=== PATIENT | female | born 1995 | race Caucasian/White ===

== ENCOUNTER 2021-09-06 20:07 | Emergency (ER) | payer MEDICAID, SELFPAY ==
--- NOTE | 2021-09-06 20:15 | ECG_ITS ---
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 Measurements Intervals [place] Rate: 101 P: 39 PA: 128 QRS: 47 QRSD: 92 T: 17 QT: 341 QTc: 443 Interpretive Statements SINUS TACHYCARDIA INCOMPLETE RIGHT BUNDLE BRANCH BLOCK [90+ ms QRS DURATION, TERMINAL R IN V1/V2, 40+ ms S IN I/aVL/V4/V5/V6] ABNORMAL RHYTHM ECG No previous ECG available for comparison Electronically Signed On 09-06-2021 22:48:59 AUTO SERVICE INSTRUCTOR by Samia Tariq M.D. [id number] true
[2021-09-06 20:22] VITALS: PULSE 118; RESP 20; O2SAT 97
[2021-09-06 20:23] VITALS: BMI 32.9
[2021-09-06 20:39] VITALS: BP 130/93; PULSE 94; RESP 18; TEMP 37.1; O2SAT 99
--- NOTE | 2021-09-06 21:57 | W.ED.ARRPALP ---
Documented by User: BOUCHRA Parker 09/07/21 01:05 HPI - Arrhythmia/Palpitations General: Chief Complaint: Arrhythmia/Palpitations Stated Complaint: fast heart beat, Dizzy Time Seen by Provider: 09/06/21 21:54 History of Present Illness: HPI narrative: Patient presents with dizziness and increased heart rate since starting Metformin and lisinopril with hydrochlorothiazide 2 days ago. Patient said she is lost about 6 pounds and been peeing a lot. Said she also had some diarrhea since starting Metformin. Patient denies any other illness presently. Patient states she has been diabetic since age 11 or 12 and has been on off medications during that time. Also has history of generalized anxiety diagnosed at that time. Patient does not follow strict diabetic diet and just saw Dr. Lo at [facility] this past week and got put on medication has a follow-up appointment in a week. She states her blood sugars been in the mid 200s here last week. MD complaint: rapid heart beat Onset (ago): hour(s) Duration: constant Severity: moderate Context: other (Since starting new medication) Associated symptoms: Reports no associated symptoms; Deny anxiety, nausea or vomiting Review of Systems Const: Denies: fever(s), chills or body aches Eyes: Denies: change in vision or blurry vision ENMT: Denies: throat pain or nasal congestion Card: Denies: chest pain or dyspnea on exertion Resp: Denies: dyspnea, productive cough or non-productive cough GI: Reports: diarrhea; Denies: abdominal pain, nausea or vomiting : Reports: urinary frequency Musc: Denies: extremity pain Skin/Breast: Denies: rash Neuro: Reports: dizziness (With standing and moving about); Denies: headache(s) Psych: Denies: anxiety or depression Joaquim/Lymph: Denies: easy bruising [facility] ED Female Reproductive History: Date of last menstrual period: 08/13/21 Physical Exam Const: COMMON NORMALS: no acute distress, average body habitus and patient oriented x3 HENMT: COMMON NORMALS: normocephalic HEAD & SCALP: normal to inspection and normocephalic FACE & SINUS: normal facial exam Eye: COMMON NORMALS: conjunctivae normal GENERAL EYE: appearance normal, both eyes and all related structures CONJUNCTIVA: Yes conjunctivae normal Neck/C-Spine: COMMON NORMALS: no JVD Chest: COMMONS NORMALS: normal inspection of the chest Resp: COMMON NORMALS: normal respiratory effort and clear to auscultation bilaterally AUSCULTATION: clear to auscultation bilaterally Cardio: COMMON NORMALS: no JVD, regular rate and regular rhythm RATE: regular rate RHYTHM: regular rhythm GI: COMMON NORMALS: Normal to inspection, nondistended, normoactive bowel sounds present Extremity: COMMON NORMALS: normal to inspection and full ROM Neuro: COMMON NORMALS: patient oriented x3 Course Vital Signs: Vital signs: Vital Signs Temperature 98.7 F 09/06/21 20:39 Pulse Rate 105 H 09/06/21 23:06 Respiratory Rate 18 09/06/21 23:06 Blood Pressure 160/98 09/06/21 23:06 Pulse Oximetry 98 09/06/21 23:06 MDM - Arrhythmia/Palpitations MDM Narrative: Medical decision making narrative: Patient presents with signs of dehydration and adverse medication effects. Patient is diabetic since age 11 or 12 she states and has been on and off medication alternate time. Also has history of generalized anxiety disorder. Patient states that since started on Metformin and lisinopril hydrochlorothiazide here 2 days ago she has been peeing a lot lost 6 pounds and is been dizzy with standing. Laboratory studies were done EKG which support dehydration and poor blood sugar control. Patient given a liter of fluid improved remarkably. Patient encouraged follow-up primary care provider to discuss medications and also was strongly encouraged to monitor blood sugars on a regular basis follow diabetic diet and get her diabetes under control. Lab Data: Labs: Lab Results 09/06/21 09/06/21 09/06/21 22:00 22:00 22:17 WBC 17.0 10^3/uL H 10 ^3/uL (4.0-10.0) RBC 5.89 10^6/uL H 10 ^6/uL (4.1-5.3) Hgb 15.1 g/dL g/dL (11.5-15.3) Hct 47.9 % H % (37.0-47.0) MCV 81.3 fl fl (81-99) MCH 25.6 pg L pg (28.0-34.0) MCHC 31.5 g/dL g/dL (30.0-36.0) RDW 13.8 % % (12.1-15.1) Plt Count 434 10^3/cmm H 10 ^3/cmm (130-400) MPV 11.3 fL H fL (7.4-10.4) Neut % (Auto) 69.1 % % Lymph % (Auto) 24.8 % % [place] % (Auto) 4.9 % % Eos % (Auto) 0.1 % % Baso % (Auto) 0.5 % % Neut # (Auto) 11.74 10^3/uL H 1 0^3/uL (1.8-7.7) Lymph # (Auto) 4.2 10^3/uL 10^3/ uL (0.8-4.8) [place] # (Auto) 0.8 10^3/uL 10^3/ uL (0.2-0.9) Eos # (Auto) 0.0 10^3/uL 10^3/ uL (0.0-0.8) Baso # (Auto) 0.1 10^3/uL 10^3/ uL (0.0-0.1) Nucleated RBC % (a uto) 0 % % Nucleated RBCs # 0.0 /100WBC /100W BC Sodium 130 mmol/L L mmol /L (136-145) Potassium 3.8 mmol/L mmol/L (3.5-5.1) Chloride 93 mmol/L L mmol/ L (98-107) Carbon Dioxide 21 mmol/L L mmol/ L (22-29) Anion Gap 19.8 H (5-19) BUN 9 mg/dL mg/dL (6-20) Creatinine 0.3 mg/dL L mg/dL (0.5-0.9) GFR Calculation 268.9 mL/min H mL /min (90-130) Glucose 237 mg/dL H mg/dL (65-115) Calculated Osmolal ity 276 mOsm/kg L mOs m/kg (285-295) Calcium 9.9 mg/dL mg/dL (8.5-10.5) Urine Color Yellow (Yellow) Urine Appearance Clear (CLEAR) Urine pH 5 (5-7) Ur Specific Gravit y 1.015 (1.005-1.030) Urine Protein Neg (Negative) Urine Glucose (UA) 2+ H (Normal) Urine Ketones 2+ H (Negative) Urine Blood Neg (Negative) Urine Nitrate Negative (Negative) Urine Bilirubin Neg (Negative) Urine Urobilinogen Norm mg/dL mg/dL (Negative) Ur Leukocyte Lay ase Negative (Negative) Discharge Plan Discharge Patient Disposition: Home Clinical Impression: Anxiety, generalized, Dehydration Adverse effect of drug/medicinal Qualifiers: Encounter type: initial encounter Qualified Code(s): T50.905A - Adverse effect of unspecified drugs, medicaments and biological substances, initial encounter Diabetes Qualifiers: Diabetes mellitus type: type 2 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 Make sure that you drink plenty of fluids. Follow strict diabetic diet. Check blood pressure twice a day. Discussed with Gissell Lo your new medications and possibly getting off the water pill. Check sugars twice daily. Coding Level of Care Code ED Environmental Studies Professor for Chg Fwd Exam Comprehensive Documented by User: Nimo Isaacs MD 09/07/21 01:08 HPI - Arrhythmia/Palpitations General: Chief Complaint: Arrhythmia/Palpitations Stated Complaint: fast heart beat, Dizzy Time Seen by Provider: 09/06/21 21:54 Course Vital Signs: Vital signs: Vital Signs Temperature 98.7 F 09/06/21 20:39 Pulse Rate 105 H 09/06/21 23:06 Respiratory Rate 18 09/06/21 23:06 Blood Pressure 160/98 09/06/21 23:06 Pulse Oximetry 98 09/06/21 23:06 MDM - Arrhythmia/Palpitations MDM Narrative: Medical decision making narrative: Discussed case with midlevel patient is likely having palpitations due to anxiety. Patient's blood work here is normal she does have cardiology follow-up and is to follow-up then. She is return if worsening. Lab Data: Labs: Lab Results 09/06/21 09/06/21 09/06/21 22:00 22:00 22:17 WBC 17.0 10^3/uL H 10 ^3/uL (4.0-10.0) RBC 5.89 10^6/uL H 10 ^6/uL (4.1-5.3) Hgb 15.1 g/dL g/dL (11.5-15.3) Hct 47.9 % H % (37.0-47.0) MCV 81.3 fl fl (81-99) MCH 25.6 pg L pg (28.0-34.0) MCHC 31.5 g/dL g/dL (30.0-36.0) RDW 13.8 % % (12.1-15.1) Plt Count 434 10^3/cmm H 10 ^3/cmm (130-400) MPV 11.3 fL H fL (7.4-10.4) Neut % (Auto) 69.1 % % Lymph % (Auto) 24.8 % % [place] % (Auto) 4.9 % % Eos % (Auto) 0.1 % % Baso % (Auto) 0.5 % % Neut # (Auto) 11.74 10^3/uL H 1 0^3/uL (1.8-7.7) Lymph # (Auto) 4.2 10^3/uL 10^3/ uL (0.8-4.8) [place] # (Auto) 0.8 10^3/uL 10^3/ uL (0.2-0.9) Eos # (Auto) 0.0 10^3/uL 10^3/ uL (0.0-0.8) Baso # (Auto) 0.1 10^3/uL 10^3/ uL (0.0-0.1) Nucleated RBC % (a uto) 0 % % Nucleated RBCs # 0.0 /100WBC /100W BC Sodium 130 mmol/L L mmol /L (136-145) Potassium 3.8 mmol/L mmol/L (3.5-5.1) Chloride 93 mmol/L L mmol/ L (98-107) Carbon Dioxide 21 mmol/L L mmol/ L (22-29) Anion Gap 19.8 H (5-19) BUN 9 mg/dL mg/dL (6-20) Creatinine 0.3 mg/dL L mg/dL (0.5-0.9) GFR Calculation 268.9 mL/min H mL /min (90-130) Glucose 237 mg/dL H mg/dL (65-115) Calculated Osmolal ity 276 mOsm/kg L mOs m/kg (285-295) Calcium 9.9 mg/dL mg/dL (8.5-10.5) Urine Color Yellow (Yellow) Urine Appearance Clear (CLEAR) Urine pH 5 (5-7) Ur Specific Gravit y 1.015 (1.005-1.030) Urine Protein Neg (Negative) Urine Glucose (UA) 2+ H (Normal) Urine Ketones 2+ H (Negative) Urine Blood Neg (Negative) Urine Nitrate Negative (Negative) Urine Bilirubin Neg (Negative) Urine Urobilinogen Norm mg/dL mg/dL (Negative) Ur Leukocyte Lay ase Negative (Negative) Discharge Plan Discharge Patient Disposition: Home Clinical Impression: Anxiety, generalized, Dehydration Adverse effect of drug/medicinal Qualifiers: Encounter type: initial encounter Qualified Code(s): T50.905A - Adverse effect of unspecified drugs, medicaments and biological substances, initial encounter Diabetes Qualifiers: Diabetes mellitus type: type 2 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 Make sure that you drink plenty of fluids. Follow strict diabetic diet. Check blood pressure twice a day. Discussed with Gissell Lo your new medications and possibly getting off the water pill. Check sugars twice daily. Coding Level of Care Code ED Environmental Studies Professor for Chg Fwd Exam Comprehensive
[2021-09-06 22:09] VITALS: BP 156/109; BP 158/90; BP 178/113; PULSE 104; PULSE 109; PULSE 93
[2021-09-06 22:12] LABS: Basophils # 0.1 10^3/uL (0.0-0.1); Basophils % 0.5 %; Eosinophils % 0.1 %; Hematocrit 47.9 % (37.0-47.0); Hemoglobin 15.1 g/dL (11.5-15.3); Lymphocytes # 4.2 10^3/uL (0.8-4.8); Lymphocytes % 24.8 %; Mean Corpuscular HGB Conc 31.5 g/dL (30.0-36.0); Mean Corpuscular Hemoglobin 25.6 pg (28.0-34.0); Mean Corpuscular Volume 81.3 fl (81-99); Mean Platelet Volume 11.3 fL (7.4-10.4); Monocytes # 0.8 10^3/uL (0.2-0.9); Monocytes % 4.9 %; Neutrophils # 11.74 10^3/uL (1.8-7.7); Neutrophils % 69.1 %; Nucleated Red Blood Cells % 0 %; Platelet Count 434 10^3/cmm (130-400); Red Blood Count 5.89 10^6/uL (4.1-5.3); Red Cell Distribution Width 13.8 % (12.1-15.1)
[2021-09-06] MEDS: sodium chloride 0.9% 1,000 ML 999 ML IV (22:20)
[2021-09-06 22:22] LABS: Add Urine Microscopic? NO; Charge for UA Resulting for Rev
[2021-09-06 22:26] LABS: Bilirubin Urine Neg (Negative); Blood Urine Neg (Negative); Glucose Urine UA 2+ (Normal); Ketones Urine 2+ (Negative); Leukocyte Esterase Urine Negative (Negative); Nitrate Urine Negative (Negative); Protein Urine Neg (Negative); Specific Gravity, Urine 1.015 (1.005-1.030); Urine Appearance Clear (CLEAR); Urine Color Yellow (Yellow); Urobilinogen Urine Norm (Negative); pH Urine 5 (5-7)
[2021-09-06 22:28] LABS: Blood Urea Nitrogen 9 mg/dL (6-20); Calcium 9.9 mg/dL (8.5-10.5); Carbon Dioxide 21 mmol/L (22-29); Chloride 93 mmol/L (98-107); Glomerular Filtration Rate 268.9 mL/min (90-130); Glucose 237 mg/dL (65-115); Osmolality Calculated 276 mOsm/kg (285-295); Sodium 130 mmol/L (136-145)
[2021-09-06 22:31] LABS: Anion Gap 19.8 (5-19); Potassium 3.8 mmol/L (3.5-5.1)
[2021-09-06] MEDS: LORazepam 1 mg Tablet PO (22:54)
[2021-09-06 23:06] VITALS: BP 160/98; PULSE 105; RESP 18; O2SAT 98
[2021-09-06 23:14] LABS: Slide Review Slide Review Perform
== END 2021-09-06 23:13 | disposition home or self-care (01) ==
PROVIDERS: Emergency Provider Nurse Practitioner Family; PCP Nurse Practitioner Family
DX: F41.1 Generalized anxiety disorder (principal); E86.0 Dehydration; T50.905A Adverse effect of unspecified drugs, medicaments and biological substances, initial encounter; E11.9 Type 2 diabetes mellitus without complications
CPT/HCPCS: 80048; 81003; 85025; 93005; 96360; 99284; J7030

== ENCOUNTER 2021-11-26 09:23 | Outpatient (CLI) | payer MEDICAID, SELFPAY ==
[2021-11-26 10:35] LABS: Free T4 Free Thyroxine 1.28 ng/dL (0.82-1.77); Thyroid Stimulating Hormone 1.31 uIU/mL (0.27-4.20)
[2021-11-27 07:36] LABS: T3 Total 121 ng/dL (76-181)
[2021-12-01 00:37] LABS: TSH Receptor Binding Antibody 1.16 IU/L (< OR = 2.00)
== END 2021-11-26 09:24 | disposition home or self-care (01) ==
LOC: LAB 09:28
PROVIDERS: PCP Nurse Practitioner Family; Visit Provider Internal Medicine
DX: R00.0 Tachycardia, unspecified (principal)
CPT/HCPCS: 36415; 83516; 84439; 84443; 84480

== ENCOUNTER → 2022-02-22 08:42 | Outpatient (BNVA) | payer MEDICAID, SELFPAY | PROVIDERS: Visit Provider Internal Medicine | DX: E11.65 Type 2 diabetes mellitus with hyperglycemia (principal); E16.0 Drug-induced hypoglycemia without coma; E78.2 Mixed hyperlipidemia; R00.0 Tachycardia, unspecified; I10 Essential (primary) hypertension | CPT/HCPCS: 99214 ==

== ENCOUNTER → 2022-05-23 09:12 | Outpatient (BNVA) | payer MEDICAID, SELFPAY | PROVIDERS: Visit Provider Internal Medicine | DX: E11.65 Type 2 diabetes mellitus with hyperglycemia (principal); E16.0 Drug-induced hypoglycemia without coma; E78.2 Mixed hyperlipidemia; R00.0 Tachycardia, unspecified | CPT/HCPCS: 80061; 83036 ==

== ENCOUNTER → 2022-05-24 10:58 | Outpatient (BNVA) | payer MEDICAID, SELFPAY | PROVIDERS: Visit Provider Internal Medicine | DX: E11.65 Type 2 diabetes mellitus with hyperglycemia (principal); E16.0 Drug-induced hypoglycemia without coma; E78.2 Mixed hyperlipidemia; R00.0 Tachycardia, unspecified; I10 Essential (primary) hypertension | CPT/HCPCS: 82384; 82530; 82570 ==

== ENCOUNTER → 2022-06-02 10:01 | Outpatient (BNVA) | payer MEDICAID, SELFPAY | PROVIDERS: Visit Provider Emergency Medicine | DX: J02.9 Acute pharyngitis, unspecified (principal) | CPT/HCPCS: 87071; 87880 ==

== ENCOUNTER → 2022-06-03 14:54 | Outpatient (BNVA) | payer MEDICAID, SELFPAY | PROVIDERS: PCP Nurse Practitioner Family; Visit Provider Internal Medicine | DX: E11.65 Type 2 diabetes mellitus with hyperglycemia (principal); E11.40 Type 2 diabetes mellitus with diabetic neuropathy, unspecified; E11.649 Type 2 diabetes mellitus with hypoglycemia without coma; R00.0 Tachycardia, unspecified; E78.2 Mixed hyperlipidemia; I10 Essential (primary) hypertension; E16.0 Drug-induced hypoglycemia without coma; E03.8 Other specified hypothyroidism; Z79.4 Long term (current) use of insulin | CPT/HCPCS: 99214 ==

== ENCOUNTER 2022-10-31 14:19 | Emergency (ER) | payer MEDICAID, SELFPAY ==
[2022-10-31] VITALS (50 sets, daily range): BP systolic 122–144; BP diastolic 57–97; PULSE 120–128; RESP 16; TEMP 38.6; O2SAT 96–100
[2022-10-31] MEDS: ibuprofen 800 mg tablet PO (15:33)
--- NOTE | 2022-10-31 16:06 | ED_ITS ---
Documented by User: Daniela Taylor IT INFRASTRUCTURE CONSULTANT-C 11/01/22 13:40 HPI - Fever General: Chief Complaint: Fever Stated Complaint: headache/weak Time Seen by Provider: 10/31/22 15:52 History of Present Illness: Patient reports that she is here today for dehydration. She reports that she has been sick for 5 days with lots of vomiting. She reports that she was recently diagnosed with influenza A. She reports that she also has swelling and pain of her left labia extending to her rectum. She reports that today she has noticed that she has had a higher heart rate and she is just not feeling well she is becoming very weak. She is drinking and using Zofran and not vomiting as much but she feels like she is not improving at all. She does report that she is diabetic. PFSH ED PFSH: Medical History Asthma Diabetes type 2, uncontrolled Surgical History No pertinent past surgical history Family History Father Ineffective renal tissue perfusion Cardiovascular abnormality due to infective myocarditis Mother Diabetes Hypertension High serum cholesterol sulfate Family/Other Myocardial infarction Social History Smoking and tobacco status: never smoked Second hand smoke exposure: No Smoking risk assessment/counseling performed?: Yes Alcohol intake: never Desire information about alcohol rehabilitation?: No Counseling given: No Desire information about substance/drug rehabilitation?: No Counseling given: No Adopted: No Caregiver/support person: No Lives independently: Yes Household members: significant other Housing: House Marital status: Single Highest education level completed: High School Graduate service: No Current occupational status: unemployed History of recent travel: No Female Reproductive History: Date of last menstrual period: 08/13/21 Physical Exam Const: COMMON NORMALS: no acute distress, patient oriented x3 and alert HENMT: COMMON NORMALS: normocephalic, hearing grossly normal bilaterally, EAC's normal, TM's normal bilaterally, Normal nasal mucous membranes and turbinates present, moist oral mucous membranes and oropharynx normal HEAD & SCALP: normocephalic NOSE: Normal nasal mucous membranes and turbinates present EXTERNAL AUDITORY CANAL: EAC's normal TYMPANIC MEMBRANE: TM's normal bilaterally Neck/C-Spine: COMMON NORMALS: no JVD Resp: COMMON NORMALS: normal respiratory effort, No use of accessory muscles and clear to auscultation bilaterally AUSCULTATION: clear to auscultation bilaterally Cardio: COMMON NORMALS: no JVD, regular rate, regular rhythm, S1 normal heart sound present and S2 normal heart sound present RATE: regular rate RHYTHM: regular rhythm HEART SOUNDS: S1 normal heart sound present and S2 normal heart sound present GI: COMMON NORMALS: Normal to inspection, nondistended, normoactive bowel sounds present, Soft to palpation and non-tender PALPATION: Yes Soft to palpation : OTHER: Redness and tenderness over the entire left side labia majora with no definitive area of fluctuance or abscess appreciated. The redness extends into the inguinal region on the left side. There is no redness seen extending from the perineum to the anus however patient reports tenderness and pressure in that region. Neuro: COMMON NORMALS: patient oriented x3 SENSORIUM/ORIENTATION: Yes alert Course ED course: 1600-patient is alert and ill-appearing nontoxic. She is sitting in the COVID waiting room when I initially met her. Given her complaints she needs a further evaluation and an actual bed to evaluate the swelling of her labia. We will do a complete assessment once the patient is in an actual room. Vital Signs: Vital signs: Vital Signs Temperature 101.5 F H 10/31/22 14:50 Pulse Rate 120 H 10/31/22 19:30 Respiratory Rate 16 10/31/22 14:50 Blood Pressure 143/88 10/31/22 20:30 Pulse Oximetry 98 10/31/22 20:30 Oxygen Delivery Me thod 10/31/22 19:30 MDM - Fever Medical Decision Making Consider cellulitis of the labia, abscess of the labia, upper respiratory infection, dehydration, sepsis Labs?25.6 wbc UA positive for glucosurea negative for leukoesterase, blood, or nitrates. CT ordered. Care transition to Moise Owens at the end of my shift Lab Data 10/31/22 16:24 10/31/22 16:24 Radiology Impressions Abdomen/Pelvis CT 10/31/22 17:09 IMPRESSION: 1. Mildly prominent bilateral inguinal lymph nodes, likely reactive. 2. Some inflammatory fat stranding noted within the mesorectal fat, which may reflect proctitis. 3. There is some mild inflammatory fat stranding noted within the subcutaneous fat of the left labia, which is partially visualized on exam. No abscess seen in this region. Chest X-Ray 10/31/22 17:57 IMPRESSION: No acute findings. Laboratory Results WBC 25.6 10^3/uL (4.0-10.0) H 10/31/22 16:24 RBC 4.94 10^6/uL (4.1-5.3) 10/31/22 16:24 Hgb 12.5 g/dL (11.5-15.3) 10/31/22 16:24 Hct 40.8 % (37.0-47.0) 10/31/22 16:24 MCV 82.6 fl (81-99) 10/31/22 16:24 MCH 25.3 pg (28.0-34.0) L 10/31/22 16:24 MCHC 30.6 g/dL (30.0-36.0) 10/31/22 16:24 RDW 14.0 % (12.1-15.1) 10/31/22 16:24 Plt Count 342 10^3/cmm (130-400) 10/31/22 16:24 MPV 11.1 fL (7.4-10.4) H 10/31/22 16:24 Neut % (Auto) 79.6 % 10/31/22 16:24 Lymph % (Auto) 11.6 % 10/31/22 16:24 Buchanan % (Auto) 7.3 % 10/31/22 16:24 Eos % (Auto) 0.0 % 10/31/22 16:24 Baso % (Auto) 0.3 % 10/31/22 16:24 Neut # (Auto) 20.41 10^3/uL (1.8-7.7) H 10/31/22 16:24 Lymph # (Auto) 3.0 10^3/uL (0.8-4.8) 10/31/22 16:24 Buchanan # (Auto) 1.9 10^3/uL (0.2-0.9) H 10/31/22 16:24 Eos # (Auto) 0.0 10^3/uL (0.0-0.8) 10/31/22 16:24 Baso # (Auto) 0.1 10^3/uL (0.0-0.1) 10/31/22 16:24 Nucleated RBC % (auto) 0 % 10/31/22 16:24 Nucleated RBCs # 0.0 /100WBC 10/31/22 16:24 Sodium 134 mmol/L (136-145) L 10/31/22 16:24 Potassium 4.3 mmol/L (3.5-5.1) 10/31/22 16:24 Chloride 99 mmol/L (98-107) 10/31/22 16:24 Carbon Dioxide 18 mmol/L (22-29) L 10/31/22 16:24 Anion Gap 21.3 (5-19) H 10/31/22 16:24 BUN 10 mg/dL (6-20) 10/31/22 16:24 Creatinine 0.5 mg/dL (0.5-0.9) 10/31/22 16:24 GFR Calculation 148.0 mL/min (90-130) H 10/31/22 16:24 Glucose 90 mg/dL (65-115) 10/31/22 16:24 Calculated Osmolality 277 mOsm/kg (285-295) L 10/31/22 16:24 Calcium 9.5 mg/dL (8.5-10.5) 10/31/22 16:24 Total Bilirubin 0.4 mg/dL (0.15-1.2) 10/31/22 16:24 AST 30 U/L (0-32) 10/31/22 16:24 ALT 20 U/L (0-33) 10/31/22 16:24 Alkaline Phosphatase 105 U/L (35-105) 10/31/22 16:24 Total Protein 9.1 g/dL (6.6-8.7) H 10/31/22 16:24 Albumin 3.8 g/dL (3.5-5.2) 10/31/22 16:24 Globulin 5.3 g/dL (1.3-4.6) H 10/31/22 16:24 HCG, Qual Negative (Negative) 10/31/22 18:00 Urine Color Yellow (Yellow) 10/31/22 16:29 Urine Appearance Clear (CLEAR) 10/31/22 16: Urine pH 5 (5-7) 10/31/22 16:29 Ur Specific Bernard 1.015 (1.005-1.030) 10/31/22 16:29 Urine Protein Neg (Negative) 10/31/22 16:29 Urine Glucose (UA) 4+ (Normal) H 10/31/22 16:29 Urine Ketones 3+ (Negative) H 10/31/22 16:29 Urine Blood Neg (Negative) 10/31/22 16:29 Urine Nitrate Negative (Negative) 10/31/22 16:29 Urine Bilirubin Neg (Negative) 10/31/22 16:29 Urine Urobilinogen Neg mg/dL (Negative) 10/31/22 16:29 Ur Leukocyte Esterase Negative (Negative) 10/31/22 16:29 Discharge Plan Discharge Patient Disposition: Home Clinical Impression: Proctitis, Cellulitis of labia Condition: Stable Prescriptions: New doxycycline hyclate 100 mg capsule 100 mg PO BID 10 Days Qty: 20 0RF ondansetron 4 mg tablet,disintegrating 4 mg PO Q8H PRN (Reason: nausea and vomiting) Qty: 15 0RF No Action simvastatin 10 mg tablet 10 mg PO DAILY lisinopril 20 mg tablet 20 mg PO DAILY Jardiance 25 mg tablet 25 mg PO DAILY Qty: 90 3RF Rx Instructions: Take one tablet by mouth daily. cetirizine [Zyrtec] 10 mg tablet 10 mg PO DAILY metoprolol succinate 25 mg tablet extended release 24 hr 25 mg PO DAILY Qty: 90 1RF insulin glargine [Lantus Solostar U-100 Insulin] 100 unit/mL (3 mL) insulin pen 30 unit SUBCUT QAM Qty: 30 3RF Rx Instructions: Inject 30 units subcut daily. Discharge Orders: Discharge ED (Routine); Ordered 10/31/22 Ordered By: Moise Owens Referrals: Gissell Lo FNP [Primary Care Provider] - Discharge Diet: Advance as tolerated Discharge Activity: Increase activity as tolerated Patient Instructions: Proctitis (ED), Cellulitis (ED), Opioid Safety Activity Restrictions/Additional Instructions: Follow-up with medical provider as directed in the next 5 to 7 days for reevaluation. Take medications as prescribed. Return to the ER or your medical provider if condition worsens. Please read and understand discharge instructions . Thank you for choosing [facility] for your healthcare needs today. Please realize this is an emergency room and that we are providing you with a medical screening exam and this may not be complete and all inclusive of all the testing and or work up that you may need to determine your ailment or severity of your illness. It is very important that you follow up as instructed or that you return to the Emergency Department should you have concerns or if your condition changes or worsens in any way. Sign Out Sign Out Data: Patient Sign Out occurred on 10/31/22 at 17:32. Patient's care was discussed, and care was transferred from to DERRICK Jefferson. Coding Level of Care Code ED Ventilation Equipment Tender for Chg Fwd Exam Detailed Documented by User: DERRICK Jefferson 11/03/22 07:16 HPI - Fever General: Chief Complaint: Fever Stated Complaint: headache/weak Time Seen by Provider: 10/31/22 15:52 History of Present Illness: Associated symptoms: Deny abdominal pain, flank pain, chills, chest pain, diarrhea, dysuria, headache(s), nasal congestion, nausea or vomiting Review of Systems Const: Denies: fever(s), chills or fatigue Eyes: Denies: change in vision or eye discomfort ENMT: Denies: throat pain, odynophagia, nasal discharge or nasal congestion Card: Denies: chest pain, palpitations, edema, swelling of feet/ankles, dyspnea on exertion or orthopnea Resp: Denies: dyspnea, productive cough or non-productive cough GI: Denies: abdominal pain, nausea, vomiting, diarrhea, constipation or hemat ochezia : Reports: genital lesions (Left labial swelling and pain); Denies: flank pain, dysuria or hematuria Musc: Denies: neck pain, back pain or extremity swelling Skin/Breast: Reports: new lesions (Left labia swelling and pain); Denies: rash Neuro: Denies: headache(s), numbness in extremities or weakness in extremities PFS ED PFSH: Medical History Asthma Diabetes type 2, uncontrolled Surgical History No pertinent past surgical history Family History Father Ineffective renal tissue perfusion Cardiovascular abnormality due to infective myocarditis Mother Diabetes Hypertension High serum cholesterol sulfate Family/Other Myocardial infarction Social History Smoking and tobacco status: never smoked Second hand smoke exposure: No Smoking risk assessment/counseling performed?: Yes Alcohol intake: never Desire information about alcohol rehabilitation?: No Counseling given: No Desire information about substance/drug rehabilitation?: No Counseling given: No Adopted: No Caregiver/support person: No Lives independently: Yes Household members: significant other Housing: House Marital status: Single Highest education level completed: High School Graduate service: No Current occupational status: unemployed History of recent travel: No Course Vital Signs: Vital signs: Vital Signs Temperature 101.5 F H 10/31/22 14:50 Pulse Rate 120 H 10/31/22 19:30 Respiratory Rate 16 10/31/22 14:50 Blood Pressure 143/88 10/31/22 20:30 Pulse Oximetry 98 10/31/22 20:30 Oxygen Delivery Me thod 10/31/22 19:30 MDM - Fever Medical Decision Making Consider cellulitis of the labia, abscess of the labia, upper respiratory infection, dehydration, sepsis Labs?25.6 wbc UA positive for glucosurea negative for leukoesterase, blood, or nitrates. CT ordered. Care transition to Moise Owens at the end of my shift I agree with Daniela Taylor FITNESS TEACHER history and exam findings. CT abdomen pelvis showed mildly prominent bilateral inguinal lymph nodes. Some inflammatory fat stranding noted with mesorectal fat which is reflective of proctitis. She also had some mild inflammatory fat strain noted within the subcutaneous fat of the left labia but there is no abscess seen in this region. She was diagnosed with proctitis and cellulitis of the labia given exam and CT findings. She was given a dose of IV antibiotics here in the ED and was stable for discharge home. She was sent home with a prescription for Zofran, doxycycline and hydrocodone for pain. Patient was told to follow-up with her PCP/Manager Inspection doctor within the next 3 to 5 days for reevaluation. Strict return ED precautions given. Patient understood and agreed with plan. Lab Data I reviewed the patient's lab results. 10/31/22 16:24 10/31/22 16:24 Radiology Impressions Abdomen/Pelvis CT 10/31/22 17:09 IMPRESSION: 1. Mildly prominent bilateral inguinal lymph nodes, likely reactive. 2. Some inflammatory fat stranding noted within the mesorectal fat, which may reflect proctitis. 3. There is some mild inflammatory fat stranding noted within the subcutaneous fat of the left labia, which is partially visualized on exam. No abscess seen in this region. Chest X-Ray 10/31/22 17:57 IMPRESSION: No acute findings. Laboratory Results WBC 25.6 10^3/uL (4.0-10.0) H 10/31/22 16:24 RBC 4.94 10^6/uL (4.1-5.3) 10/31/22 16:24 Hgb 12.5 g/dL (11.5-15.3) 10/31/22 16:24 Hct 40.8 % (37.0-47.0) 10/31/22 16:24 MCV 82.6 fl (81-99) 10/31/22 16:24 MCH 25.3 pg (28.0-34.0) L 10/31/22 16:24 MCHC 30.6 g/dL (30.0-36.0) 10/31/22 16:24 RDW 14.0 % (12.1-15.1) 10/31/22 16:24 Plt Count 342 10^3/cmm (130-400) 10/31/22 16:24 MPV 11.1 fL (7.4-10.4) H 10/31/22 16:24 Neut % (Auto) 79.6 % 10/31/22 16:24 Lymph % (Auto) 11.6 % 10/31/22 16:24 Buchanan % (Auto) 7.3 % 10/31/22 16:24 Eos % (Auto) 0.0 % 10/31/22 16:24 Baso % (Auto) 0.3 % 10/31/22 16:24 Neut # (Auto) 20.41 10^3/uL (1.8-7.7) H 10/31/22 16:24 Lymph # (Auto) 3.0 10^3/uL (0.8-4.8) 10/31/22 16:24 Buchanan # (Auto) 1.9 10^3/uL (0.2-0.9) H 10/31/22 16:24 Eos # (Auto) 0.0 10^3/uL (0.0-0.8) 10/31/22 16:24 Baso # (Auto) 0.1 10^3/uL (0.0-0.1) 10/31/22 16:24 Nucleated RBC % (auto) 0 % 10/31/22 16:24 Nucleated RBCs # 0.0 /100WBC 10/31/22 16:24 Sodium 134 mmol/L (136-145) L 10/31/22 16:24 Potassium 4.3 mmol/L (3.5-5.1) 10/31/22 16:24 Chloride 99 mmol/L (98-107) 10/31/22 16:24 Carbon Dioxide 18 mmol/L (22-29) L 10/31/22 16:24 Anion Gap 21.3 (5-19) H 10/31/22 16:24 BUN 10 mg/dL (6-20) 10/31/22 16:24 Creatinine 0.5 mg/dL (0.5-0.9) 10/31/22 16:24 GFR Calculation 148.0 mL/min (90-130) H 10/31/22 16:24 Glucose 90 mg/dL (65-115) 10/31/22 16:24 Calculated Osmolality 277 mOsm/kg (285-295) L 10/31/22 16:24 Calcium 9.5 mg/dL (8.5-10.5) 10/31/22 16:24 Total Bilirubin 0.4 mg/dL (0.15-1.2) 10/31/22 16:24 AST 30 U/L (0-32) 10/31/22 16:24 ALT 20 U/L (0-33) 10/31/22 16:24 Alkaline Phosphatase 105 U/L (35-105) 10/31/22 16:24 Total Protein 9.1 g/dL (6.6-8.7) H 10/31/22 16:24 Albumin 3.8 g/dL (3.5-5.2) 10/31/22 16:24 Globulin 5.3 g/dL (1.3-4.6) H 10/31/22 16:24 HCG, Qual Negative (Negative) 10/31/22 18:00 Urine Color Yellow (Yellow) 10/31/22 16:29 Urine Appearance Clear (CLEAR) 10/31/22 16:29 Urine pH 5 (5-7) 10/31/22 16:29 Ur Specific Bernard 1.015 (1.005-1.030) 10/31/22 16:29 Urine Protein Neg (Negative) 10/31/22 16:29 Urine Glucose (UA) 4+ (Normal) H 10/31/22 16:29 Urine Ketones 3+ (Negative) H 10/31/22 16:29 Urine Blood Neg (Negative) 10/31/22 16:29 Urine Nitrate Negative (Negative) 10/31/22 16:29 Urine Bilirubin Neg (Negative) 10/31/22 16:29 Urine Urobilinogen Neg mg/dL (Negative) 10/31/22 16:29 Ur Leukocyte Esterase Negative (Negative) 10/31/22 16:29 Discharge Plan Discharge Patient Disposition: Home Clinical Impression: Proctitis, Cellulitis of labia Condition: Stable Prescriptions: New doxycycline hyclate 100 mg capsule 100 mg PO BID 10 Days Qty: 20 0RF ondansetron 4 mg tablet,disintegrating 4 mg PO Q8H PRN (Reason: nausea and vomiting) Qty: 15 0RF No Action simvastatin 10 mg tablet 10 mg PO DAILY lisinopril 20 mg tablet 20 mg PO DAILY Jardiance 25 mg tablet 25 mg PO DAILY Qty: 90 3RF Rx Instructions: Take one tablet by mouth daily. cetirizine [Zyrtec] 10 mg tablet 10 mg PO DAILY metoprolol succinate 25 mg tablet extended release 24 hr 25 mg PO DAILY Qty: 90 1RF insulin glargine [Lantus Solostar U-100 Insulin] 100 unit/mL (3 mL) insulin pen 30 unit SUBCUT QAM Qty: 30 3RF Rx Instructions: Inject 30 units subcut daily. Discharge Orders: Discharge ED (Routine); Ordered 10/31/22 Ordered By: Moise Owens Referrals: Gissell Lo FNP [Primary Care Provider] - Discharge Diet: Advance as tolerated Discharge Activity: Increase activity as tolerated Patient Instructions: Proctitis (ED), Cellulitis (ED), Opioid Safety Activity Restrictions/Additional Instructions: Follow-up with medical provider as directed in the next 5 to 7 days for reeva luation. Take medications as prescribed. Return to the ER or your medical provider if condition worsens. Please read and understand discharge instructions. Thank you for choosing [facility] for your healthcare needs today. Please realize this is an emergency room and that we are providing you with a medical screening exam and this may not be complete and all inclusive of all the testing and or work up that you may need to determine your ailment or severity of your illness. It is very important that you follow up as instructed or that you return to the Emergency Department should you have concerns or if your condition changes or worsens in any way. Sign Out Sign Out Data: Patient Sign Out occurred on 10/31/22 at 17:32. Patient's care was discussed, and care was transferred from to DERRICK Jefferson. Coding Level of Care Code ED Ventilation Equipment Tender for Son Fwsol Exam Detailed
[2022-10-31 16:45] LABS: Basophils # 0.1 10^3/uL (0.0-0.1); Basophils % 0.3 %; Hematocrit 40.8 % (37.0-47.0); Hemoglobin 12.5 g/dL (11.5-15.3); Lymphocytes % 11.6 %; Mean Corpuscular HGB Conc 30.6 g/dL (30.0-36.0); Mean Corpuscular Hemoglobin 25.3 pg (28.0-34.0); Mean Corpuscular Volume 82.6 fl (81-99); Mean Platelet Volume 11.1 fL (7.4-10.4); Monocytes # 1.9 10^3/uL (0.2-0.9); Monocytes % 7.3 %; Neutrophils # 20.41 10^3/uL (1.8-7.7); Neutrophils % 79.6 %; Nucleated Red Blood Cells % 0 %; Platelet Count 342 10^3/cmm (130-400); Red Blood Count 4.94 10^6/uL (4.1-5.3); White Blood Count 25.6 10^3/uL (4.0-10.0)
[2022-10-31 16:47] LABS: Add Urine Microscopic? NO; Charge for UA Resulting for Rev
[2022-10-31] MEDS: sodium chloride 0.9% 1,000 ML 999 ML IV (17:00)
[2022-10-31 17:01] LABS: Bilirubin Urine Neg (Negative); Blood Urine Neg (Negative); Glucose Urine UA 4+ (Normal); Ketones Urine 3+ (Negative); Leukocyte Esterase Urine Negative (Negative); Nitrate Urine Negative (Negative); Protein Urine Neg (Negative); Specific Gravity, Urine 1.015 (1.005-1.030); Urine Appearance Clear (CLEAR); Urine Color Yellow (Yellow); Urobilinogen Urine Neg (Negative); pH Urine 5 (5-7)
--- NOTE | 2022-10-31 17:09 | CTR_ITS ---
PROCEDURE INFORMATION: Exam: CT Abdomen And Pelvis With Contrast Exam date and time: 10/31/2022 6:58 PM Age: 27 years old Clinical indication: Pain and abnormal findings; Abnormal lab test; Elevated wbc; Other: Labia swelling, wbc high; Additional info: Labia swelling, rectal pressure, wbc 25 TECHNIQUE: Imaging protocol: Computed tomography of the abdomen and pelvis with contrast. Radiation optimization: All CT scans at this facility use at least one of these dose optimization techniques: automated exposure control; mA and/or kV adjustment per patient size (includes targeted exams where dose is matched to clinical indication); or iterative reconstruction. Contrast material: OMNIPAQUE 350; Contrast volume: 95 ml; Contrast route: INTRAVENOUS (IV); COMPARISON: CR (CHEST, ) 10/31/2022 6:10 PM RADIATION DOSE METRICS: Total DLP (mGy-cm): 924.99 FINDINGS: Liver: Normal. No mass. Gallbladder and bile ducts: Normal. No calcified stones. No ductal dilation. Pancreas: Normal. No ductal dilation. Spleen: Normal. No splenomegaly. Adrenal glands: Normal. No mass. Kidneys and ureters: Normal. No hydronephrosis. Stomach and bowel: Unremarkable. No obstruction. No mucosal thickening. Appendix: No evidence of appendicitis. Intraperitoneal space: There is some inflammatory fat stranding within the mesorectal fat. No free air. No significant fluid collection. Vasculature: Unremarkable. No abdominal aortic aneurysm. Lymph nodes: Mildly prominent bilateral inguinal lymph nodes with normal morphology, likely reactive. Urinary bladder: Unremarkable as visualized. Reproductive: Unremarkable as visualized. Bones/joints: No acute fracture. Soft tissues: No abscess seen in the subcutaneous tissues in the region of the labia which is partially visualized on exam. Mild inflammatory fat stranding noted within the subcutaneous fat at the left labia. CT/CT abdomen pelvis w con* [id number] IMPRESSION: 1. Mildly prominent bilateral inguinal lymph nodes, likely reactive. 2. Some inflammatory fat stranding noted within the mesorectal fat, which may reflect proctitis. 3. There is some mild inflammatory fat stranding noted within the subcutaneous fat of the left labia, which is partially visualized on exam. No abscess seen in this region.
[2022-10-31 17:14] LABS: Albumin Level 3.8 g/dL (3.5-5.2); Alkaline Phosphatase 105 U/L (35-105); Blood Urea Nitrogen 10 mg/dL (6-20); Calcium 9.5 mg/dL (8.5-10.5); Carbon Dioxide 18 mmol/L (22-29); Chloride 99 mmol/L (98-107); Globulin 5.3 g/dL (1.3-4.6); Glucose 90 mg/dL (65-115); Osmolality Calculated 277 mOsm/kg (285-295); Sodium 134 mmol/L (136-145); Total Bilirubin 0.4 mg/dL (0.15-1.2); Total Protein 9.1 g/dL (6.6-8.7)
[2022-10-31 17:28] LABS: Alanine Aminotransferase 20 U/L (0-33); Anion Gap 21.3 (5-19); Aspartate Amino Transferase 30 U/L (0-32); Potassium 4.3 mmol/L (3.5-5.1)
--- NOTE | 2022-10-31 17:57 | XRR_ITS ---
PROCEDURE INFORMATION: Exam: XR Chest Exam date and time: 10/31/2022 6:10 PM Age: 27 years old Clinical indication: Fever TECHNIQUE: Imaging protocol: Radiologic exam of the chest. Views: 1 view. COMPARISON: No relevant prior studies available. FINDINGS: Lungs: Unremarkable. No consolidation. Pleural spaces: Unremarkable. No pleural effusion. No pneumothorax. Heart/Mediastinum: Unremarkable. No cardiomegaly. Bones/joints: Unremarkable. XR/XR chest 1V portable [id number] IMPRESSION: No acute findings.
[2022-10-31 18:53] LABS: HCG, Serum Qual Negative (Negative)
[2022-10-31] MEDS: iohexol 350 mg/mL 500 mL Btl (per mL) IV (19:24)
[2022-10-31] MEDS: cefTRIAXone 1,000 MG in sodium chloride 0.9% (plus) 50 ML 100 MG IV (20:31)
[2022-10-31] MEDS: HYDROcodone-acetaminophen 7.5-325 mg Tablet 1 TAB PO (20:56)
== END 2022-10-31 21:05 | disposition home or self-care (01) ==
PROVIDERS: Emergency Medicine; Nurse Practitioner Family; Emergency Provider Physician Assistant; PCP Nurse Practitioner Family
DX: K62.89 Other specified diseases of anus and rectum (principal); N76.2 Acute vulvitis; Z79.4 Long term (current) use of insulin; E11.9 Type 2 diabetes mellitus without complications
CPT/HCPCS: 36415; 71045; 74177; 80053; 81003; 84703; 85025; 87040; 99285; J0696; J7030; Q9967

== ENCOUNTER → 2023-02-18 16:33 | Outpatient (BNVA) | payer MEDICAID, SELFPAY | PROVIDERS: PCP Nurse Practitioner Family; Visit Provider Internal Medicine | DX: E03.8 Other specified hypothyroidism (principal); E11.65 Type 2 diabetes mellitus with hyperglycemia; E78.2 Mixed hyperlipidemia; E16.0 Drug-induced hypoglycemia without coma | CPT/HCPCS: 80053; 80061; 82043; 83036; 84439; 84443 ==

== ENCOUNTER → 2023-03-26 16:24 | Outpatient (BNVA) | payer MEDICAID, SELFPAY | PROVIDERS: PCP Nurse Practitioner Family; Visit Provider Internal Medicine | DX: E78.2 Mixed hyperlipidemia (principal); E11.65 Type 2 diabetes mellitus with hyperglycemia; E03.8 Other specified hypothyroidism; E16.0 Drug-induced hypoglycemia without coma | CPT/HCPCS: 82384; 82530; 82570; 83497 ==

== ENCOUNTER → 2023-11-15 16:06 | Outpatient (BNVA) | payer MEDICAID, SELFPAY | PROVIDERS: PCP Nurse Practitioner Family; Visit Provider Nurse Practitioner | DX: R11.0 Nausea (principal) | CPT/HCPCS: 81025 ==